=== PATIENT | male | born 1995 | race Caucasian/White ===

== ENCOUNTER 2016-09-05 17:49 | Inpatient (IN) | payer BC ==
[~2016-09-05] VITALS: Ht 177.8 cm; Wt 83.9 kg
[2016-09-05 17:49] VITALS: BP 143/71; PULSE 60; RESP 12; TEMP 98; O2SAT 98
[2016-09-05] MEDS ORDERED: LORazepam 2 MG/ML VIAL (FOR ER USE) IM ONE (18:15)
[2016-09-05 19:01] LABS: BASOPHILS % (AUTO) 0.5 % (0.0-2.0); EOSINOPHILS % (AUTO) 0.5 % (0.0-4.0); HEMATOCRIT 45.8 % (36-54); HEMOGLOBIN 15.5 g/dL (14.0-18.0); LYMPHOCYTES # (AUTO) 1.2 K/uL (1.0-5.5); LYMPHOCYTES % (AUTO) 17.8 % (20.5-51.5); MEAN CORPUSCULAR HEMOGLOBIN 31 pg (27-31); MEAN CORPUSCULAR HGB CONC 34 % (32-36); MEAN CORPUSCULAR VOLUME 91 fL (79.0-98.0); MONOCYTES # (AUTO) 0.3 K/uL (0.0-1.0); MONOCYTES % (AUTO) 4.9 % (1.7-9.3); NEUTROPHILS # (AUTO) 5.5 K/uL (1.8-7.7); NEUTROPHILS % (AUTO) 76.3 % (40.0-70.0); PLATELET COUNT (AUTO) 270 K/uL (130-430); RED BLOOD CELL COUNT(AUTO) 5.03 MIL/uL (4.2-6.2); RED CELL DISTRIBUTION WIDTH 11.7 % (9.0-15.0)
--- NOTE | 2016-09-05 19:03 | NUR ---
PLACED IN BED 5
[2016-09-05 19:10] LABS: INR 1.1 (0.80-1.20); PROTHROMBIN TIME 12.3 SECS (9.5-12.5)
[2016-09-05 19:13] LABS: ANION GAP 10 (5-15); CHLORIDE 103 mmol/L (98-107); CREATININE 1.08 mg/dL (0.55-1.30); GLUCOSE 115 mg/dL (70-99); SODIUM SERUM 137 mmol/L (136-145); UREA NITROGEN, BLOOD 21 mg/dL (8-21)
[2016-09-05 19:14] LABS: GFR AFRICAN AMERICAN 110 mL/min (>90)
[2016-09-05 19:17] LABS: ALANINE AMINOTRANSFERASE 38 U/L (12-78); ALBUMIN 4.4 g/dL (3.4-4.8); ASPARTATE AMINOTRANSFERASE 31 U/L (10-37); CREATINE KINASE, TOTAL 351 U/L (39-308); SALICYLATE 1 mg/dL (3-30); TOTAL BILIRUBIN 0.5 mg/dL (0.0-1.0); TOTAL PROTEIN, SERUM 7.9 g/dL (6.4-8.3)
[2016-09-05 19:18] LABS: ACETAMINOPHEN < 1 ug/mL (1-30); ALCOHOL, BLOOD < 3 mg/dL (<10)
--- NOTE | 2016-09-05 19:30 | NUR ---
PT IN BED 5 WITH REPORTED ALOC AT HOME BIB AMBULANCE. HX ETOH . PT ALERT AND APPROPRIATE ON ARRIVAL. VSS. DR GRANDE AWARE.
--- NOTE | 2016-09-05 19:35 | NUR ---
ER at bedside examining patient.
[2016-09-05 19:45] LABS: BILIRUBIN,URINE NEGATIVE (NEGATIVE); BLOOD, URINE NEGATIVE (NEGATIVE); CLARITY/URINE CLEAR (CLEAR); COLOR,URINE YELLOW (YELLOW); GLUCOSE,URINE NEGATIVE (NEGATIVE); KETONES,URINE TRACE (NEGATIVE); LEUKOCYTE ESTERASE ,URINE NEGATIVE (NEGATIVE); NITRITE, URINE NEGATIVE (NEGATIVE); PH,URINE 5.5 (5.0-8.0); PROTEIN URINE NEGATIVE (NEGATIVE); UROBILINOGEN,URINE 0.2 (0.2-1.0)
[2016-09-05 19:45] LABS: CKMB RELATIVE INDEX 0.6 (0.0-2.9)
[2016-09-05 19:57] LABS: BARBITURATE, URINE NEGATIVE (NEG <=200); BENZODIAZEPINE, URINE POSITIVE (NEG <=150); CANNABINOID, URINE NEGATIVE (NEG <=50); COCAINE, URINE POSITIVE (NEG <=150); METHAMPHETAMINES SCREEN,URINE NEGATIVE (NEG <=500); OPIATE, URINE NEGATIVE (NEG <=100); PHENCYCLIDINE SCREEN,URINE NEGATIVE (NEG <=25); UR TRICYCLIC ANTIDEPRESSANTS NEGATIVE (NEG <=300); URINE AMPHETAMINE NEGATIVE (NEG <=500); URINE METHADONE NEGATIVE (NEG <=200); URINE OXYCODONE SCREEN NEGATIVE (NEG <=100); URINE PROPOXYPHENE SCREEN NEGATIVE (NEG <=300)
[2016-09-05] MEDS ORDERED: TRAZ-126 PO (20:56)
--- NOTE | 2016-09-05 20:59 | NUR ---
Patient will be admitted to care of DR GAMING. Admitted to TELE unit. Belongings list completed. Summary report printed. Report will be given at bedside.
--- NOTE | 2016-09-05 21:14 | NUR ---
Medication reconciliation completed with information provided by patient. Any prior medication reconciliation on file was reviewed and corrected.
[2016-09-05] MEDS ORDERED: HYDROcodone/ACETAMIN 7.5-325 MG TAB PO PRN (21:15)
--- NOTE | 2016-09-05 21:20 | NUR ---
Patient will be admitted to care of DR GAMING. Admitted to TELE unit. Will go to room 103B. Belongings list completed. Summary report printed. Report will be given at bedside.
--- NOTE | 2016-09-05 21:46 | NUR ---
ADMISSION NOTE Received patient from ER via [facility], received report from Dasia GALLO. Patient admitted with diagnosis of toxic encephalopathy. Patient oriented to hospital routine, call light, toileting and safety-patient verbalized understanding.
[2016-09-05 21:52] VITALS: BP 127/68; PULSE 52; RESP 18; TEMP 98.7; O2SAT 97
[2016-09-05] MEDS: LORazepam 1 MG TABLET PO SCH (22:00)
--- NOTE | 2016-09-05 22:00 | NUR ---
NOTES; RECEIVED REPORT FROM MEGHNA PT IS IN BED, SLEEPING. EASILY AROUSED BUT FALLS ASLEEP WHILE TALKING TO HIM. NO APPARENT DISTRESS NOTED. VITAL SIGNS STABLE. IV TO THE RT AC, PATENT. NO SIGNS OF INFECTION NOTED. SANDWICH AND JUICE PROVIDED PER PT REQUEST. PT ATE 100%. INSTRUCTED PT ON THE USE OF CALL LIGHT TO CALL FOR ANY NEED TO ASSIST. PT VERBALIZED UNDERSTANDING. BED LOCKED AND IN LOW POSITION, SIDE RAILS UP X3, BED ALARM ON. ROOM CLOSE TO NURSES STATION. CALL LIGHT WITHIN REACH. WILL CONTINUE TO MONITOR.
[2016-09-05 23:58] VITALS: BP 122/55; PULSE 68; RESP 14; TEMP 97; O2SAT 96
--- NOTE | 2016-09-06 | NUR ---
NOTES' APPEARED TO BE SLEEPING. EYES CLOSED. RESPIRATION EVEN AND UNLABORED. NO ACUTE DISTRESS NOTED. SAFETY MEASURES IN PROGRESS.
--- NOTE | 2016-09-06 02:00 | NUR ---
NOTES; APPEARED TO BE SLEEPING. EYES CLOSED. RESPIRATION EVEN AND UNLABORED. NO ACUTE DISTRESS NOTED. SAFETY MEASURES IN PROGRESS.
[2016-09-06] MEDS: NACL 0.9% 1,000 ML IV SCH ×3 (03:25→16:29)
--- NOTE | 2016-09-06 04:00 | NUR ---
NOTES' APPEARED TO BE SLEEPING. EYES CLOSED. RESPIRATION EVEN AND UNLABORED. NO ACUTE DISTRESS NOTED. SAFETY MEASURES IN PROGRESS.
[2016-09-06 05:56] VITALS: BP 119/68; PULSE 59; RESP 19; TEMP 97.4; O2SAT 97
[2016-09-06] MEDS: LORazepam 1 MG TABLET PO SCH ×2 (06:12→14:30)
--- NOTE | 2016-09-06 06:40 | NUR ---
NOTES; AWAKE IN BED. NO ACUTE DISTRESS NOTED. NO SIGNS OR SYMPTOMS OF WITHDRAWAL NOTED. DENIES ANY PAIN AT THIS TIME. ALL NEEDS ATTENDED. SAFETY MEASURES IN PROGRESS.
--- NOTE | 2016-09-06 07:25 | NUR ---
NRSG: PATIENT IS AWAKE,ALERT AND ORIENTED X 4. NO C/O OF PAIN, RESPIRATION EVEN AND UNLABORED. LUNGS CLEAR BILATERAL, CALMED . IV SITE ON RIGHT ANTECUBITAL WITH IVF INTACT AND INPLACED AND NO S/S OF INFILTRATION. CALL LIGHT WITHIN REACH.
[2016-09-06 08:00] VITALS: BP 110/63; PULSE 67; RESP 16; TEMP 97.4; O2SAT 97
--- NOTE | 2016-09-06 08:21 | NUR ---
ACTIVITY: EATING BREAKFAST, NO PAIN.
--- NOTE | 2016-09-06 10:00 | NUR ---
ACTIVITY: RESTING ON BED CLOSING EYES , CALMED AND NO C/O PAIN .
[2016-09-06] MEDS ORDERED: ACETAMINOPHEN 325 MG TABLET PO PRN (10:30)
[2016-09-06 11:47] LABS: BASOPHILS % (AUTO) 0.9 % (0.0-2.0); EOSINOPHILS # (AUTO) 0.1 K/uL (0.0-0.4); EOSINOPHILS % (AUTO) 2.6 % (0.0-4.0); HEMATOCRIT 45.4 % (36-54); HEMOGLOBIN 14.9 g/dL (14.0-18.0); LYMPHOCYTES # (AUTO) 2.3 K/uL (1.0-5.5); LYMPHOCYTES % (AUTO) 48.5 % (20.5-51.5); MEAN CORPUSCULAR HEMOGLOBIN 30 pg (27-31); MEAN CORPUSCULAR HGB CONC 33 % (32-36); MEAN CORPUSCULAR VOLUME 92 fL (79.0-98.0); MONOCYTES # (AUTO) 0.5 K/uL (0.0-1.0); MONOCYTES % (AUTO) 9.9 % (1.7-9.3); NEUTROPHILS # (AUTO) 1.7 K/uL (1.8-7.7); NEUTROPHILS % (AUTO) 38.1 % (40.0-70.0); PLATELET COUNT (AUTO) 240 K/uL (130-430); RED BLOOD CELL COUNT(AUTO) 4.92 MIL/uL (4.2-6.2); RED CELL DISTRIBUTION WIDTH 11.4 % (9.0-15.0); WHITE BLOOD COUNT (AUTO) 4.6 K/uL (4.8-10.8)
[2016-09-06 11:50] LABS: CALCIUM 8.9 mg/dL (8.4-11.0); CREATININE 1.17 mg/dL (0.55-1.30); POTASSIUM 3.8 mmol/L (3.5-5.1)
--- NOTE | 2016-09-06 12:00 | NUR ---
FAMILY: MOTHER IS WAITING FOR MD TO COME ,PATIENT IS AWAKE AND ALERT. STILL WITH IVF ON PROGRESS.
[2016-09-06 12:31] VITALS: BP 113/50; PULSE 48; RESP 15; TEMP 97.6; O2SAT 96
--- NOTE | 2016-09-06 14:33 | NUR ---
FAMILY: MOTHER IS CONCERN THE TIME DOCTOR COMING. EXPLAINED TO THE MOTHER IF MD WILL NOT COME AT 1500 THEN I WILL CALL.
--- NOTE | 2016-09-06 15:04 | NUR ---
CALL: GAVE A CALL TO DR. FORD REGARDING THE CONCERN OF MOTHER WHEN THE MD COMES AND DR. FORD SAID HE IS COMING AFTER [facility] .
[2016-09-06 16:02] VITALS: BP 129/57; PULSE 61; RESP 15; TEMP 98.7; O2SAT 95
--- NOTE | 2016-09-06 16:15 | NUR ---
ACTIVITY: RESTING ON BED AND MOTHER AT THE BEDSIDE. NO PAIN .WAITING FOR MD TO COME. CALL LIGHT WITHIN REACH,
--- NOTE | 2016-09-06 17:05 | NUR ---
ROUNDS: SEEN AND EXAMINED BY DR. FORD WITH NEW ORDER.SPOKE TO PATIENT AND MOTHER AT THE BEDSIDE.
[2016-09-06 17:12] VITALS: BP 110/70; PULSE 83; RESP 18; TEMP 98.6
--- NOTE | 2016-09-06 18:00 | NUR ---
IV : IV ON RIGHT ANTECUBITAL DISCONTINUED AND REMOVED WITHOUT DIFFICULTY AND CATHETER INTACT.
--- NOTE | 2016-09-06 18:20 | NUR ---
DC: DISCHARGED HOME, AWAKE,ALERT AND ORIENTED X 4. AMBULATORY ACCOMPANIED BY MOTHER SAMANTHA AND NURSE AND ALL BELONGING SENT
[2016-09-06] MEDS ORDERED: DOCUSATE SODIUM 100 MG CAPSULE PO SCH (21:00)
[2016-09-07] MEDS ORDERED: THIAMINE HCL 100 MG TABLET PO SCH (09:00)
[2016-09-07] MEDS ORDERED: MULTIVITAMINS TAB 1 TABLET PO SCH (09:00)
== END 2016-09-06 18:20 | disposition home or self-care (01) | DRG 896 ==
LOC: SED 17:49 → STU 21:03 → UNDOADMIN 21:03 → SMU 21:20 → STU 21:50 → SMU 21:50
PROVIDERS: ADMIT Family Medicine; ATTEND Family Medicine
DX: F10.129 Alcohol abuse with intoxication, unspecified (principal); G92 Toxic encephalopathy; T40.5X1A Poisoning by cocaine, accidental (unintentional), initial encounter; E86.0 Dehydration; Y90.0 Blood alcohol level of less than 20 mg/100 ml; T51.91XA Toxic effect of unspecified alcohol, accidental (unintentional), initial encounter; Y93.89 Activity, other specified; Y99.8 Other external cause status; Y92.89 Other specified places as the place of occurrence of the external cause; Z71.41 Alcohol abuse counseling and surveillance of alcoholic; Z71.51 Drug abuse counseling and surveillance of drug abuser
CPT/HCPCS: 36415; 70450-TC; 80048; 80053; 80307; 81003; 82550-TC; 82553-TC; 84484; 85025; 85610-TC; 85730-TC; 93005; 99285; G0480; G0481; G0482; J7030